=== PATIENT | female | born 1970 ===

== ENCOUNTER 2017-03-07 06:35 | Inpatient (IN) | payer OTHER ==
[2017-03-04 09:53] VITALS: BMI 35.2
--- NOTE | 2017-03-07 07:42 | CP.PCM.HP ---
History of Present Illness - History of Present Illness History of Present Illness: 46yo with Fibroid uterus and menorrhagia unresponsive to medical treatment, presenting here today for a scheduled total abdominal hysterectomy. Present on Admission - Present on Admission Any Indicators Present on Admission: No Review of Systems - Reproductive: Female Reproductive:Female: Cycle >35 Days, Menses 1-7 Days, Heavy Menses - Menstruation Menstruation: Heavy Menses Past Patient History - Past Medical History & Family History Past Medical History?: Yes - Past Social History Smoking Status: Never Smoked - PULMONARY Hx Respiratory Disorders: Yes Hx Asthma: Yes - HEMATOLOGICAL/ONCOLOGICAL Hx Blood Disorders: Yes Hx Anemia: Yes - MUSCULOSKELETAL/RHEUMATOLOGICAL Hx Musculoskeletal Disorders: Yes Hx Arthritis: Yes (LEFT ELBOW) - GASTROINTESTINAL Hx Gastrointestinal Disorders: Yes Hx Gastritis: Yes - GENITOURINARY/GYNECOLOGICAL Hx Genitourinary Disorders: Yes Hx Reproductive Disorders: Yes (HEAVY MENSES) - PSYCHIATRIC Hx Psychophysiologic Disorder: No - SURGICAL HISTORY Hx Surgeries: Yes Hx Section: Yes Other/Comment: RT OVARIAN CYSTECTOMY AGE 15 - ANESTHESIA Hx Anesthesia: Yes Hx Anesthesia Reactions: Yes (NAUSEA AND VOMITING) Hx Malignant Hyperthermia: No Has any member of the family had a problem w/ anesthesia?: No Meds Allergies/Adverse Reactions: Allergies Allergy/AdvReac Type Severity Reaction Status Date / Time No Known Allergies Allergy Verified 03/04/17 09:52 Physical Exam - Constitutional Appears: Well - Eye Exam Eye Exam: Normal appearance, PERRL - Respiratory Exam Respiratory Exam: Clear to Auscultation Bilateral, NORMAL BREATHING PATTERN - Cardiovascular Exam Cardiovascular Exam: REGULAR RHYTHM - GI/Abdominal Exam GI & Abdominal Exam: Normal Bowel Sounds - Exam External exam: NORMAL EXTERNAL EXAM Assessment & Plan (1) Menorrhagia Status: Acute (2) Fibroid (bleeding) (uterine) Status: Acute - Assessment and Plan (Free Text) Plan: NPO IV Fluids Mefoxin 1 gm before incision Director Of Software Development to OR Decision To Admit - Pt Status Changed To: Hospital Disposition Of: Inpatient - Admit Certification Admit to Inpatient:: After my assessment, the patient will require hospitalization for at least two midnights. This is because of the severity of symptoms shown, intensity of services needed, and/or the medical risk in this patient being treated as an outpatient. - InPatient: Physician Admission Certification:: Chris Win . Bed Request Type: DISTANCE EDUCATION DIRECTOR Admitting Physician: Chris Zelaya
[2017-03-07] MEDS ORDERED: Lactated Ringer's 1,000 ML IV ONE ×7 (07:49→13:23)
[2017-03-07] MEDS ORDERED: Midazolam 2 MG/2 ML VIAL ONE (07:51)
[2017-03-07] MEDS ORDERED: Propofol 10 mg/ml Inj (20 ML) ONE (07:51)
[2017-03-07] MEDS ORDERED: cefOXitin IV 2 gm in Dextrose 2 GM/50 ML BAG IVPB ONE (08:20)
[2017-03-07] MEDS ORDERED: White Petrolatum/Mineral Oil Ophth Oint(3.5 gm) ONE (08:24)
[2017-03-07] MEDS: Lidocaine 1% Inj (20ml) ONE ×2 (09:06→09:45)
[2017-03-07] MEDS ORDERED: Neostigmine Methylsulfate 3mg/3ml Syringe IV ONE (09:55)
[2017-03-07] MEDS ORDERED: Lactated Ringer's 1,000 ML IV SCH (10:30)
[2017-03-07] MEDS ORDERED: BUPIVACAINE 0.125%/0.9% NACL 600 ML IJ ONE (11:00)
[2017-03-07] MEDS: HYDROmorphone 0.5 mg/0.5 ml ISec IVP PRN ×3 (11:12→13:23)
[2017-03-07] MEDS: Oxycodone/Acetaminophen 5/325 mg Tab PO PRN ×2 (15:02→20:08)
[2017-03-07] MEDS: cefOXitin IV 2 gm in Dextrose 2 GM/50 ML BAG IVPB SCH (16:27)
--- NOTE | 2017-03-07 17:52 | PCM.SURG1 ---
Surgeon's Initial Post Op Note - Surgeon's Notes Surgeon: Dr Zelaya Business Executive: Lou Canales( FP Resident ) Type of Anesthesia: General Endo Anesthesia Administered By: ANGELA Sorto Supervised by Dr Pepe Barrios Pre-Operative Diagnosis: Fibroid Uterus with Menorrhagia Operative Findings: Large Multinodular Fibroid uterus of dimensions [id number] with absent Right fallopian tube and a fimbrial left fallopian tube. Both Ovaries appears normal. IVF Intake- 2500mls. EBL- 100mls. Urine Output - 400mls Post-Operative Diagnosis: Same as preop Diagnosis Operation Performed: Total Abdominal Hysterectomy with Left Salpingectomy Specimen/Specimens Removed: Uterus with cervix. Portion of left Fallopian tube. Estimated Blood Loss: EBL {In ML}: 100 Post-Op Condition: Good Date of Surgery/Procedure: 03/07/17 Time of Surgery/Procedure: 10:10
[2017-03-08] MEDS: cefOXitin IV 2 gm in Dextrose 2 GM/50 ML BAG IVPB SCH ×2 (00:17→08:40)
[2017-03-08 07:43] LABS: BLOOD UREA NITROGEN 6 mg/dL (7-17); CALCIUM 9.1 mg/dl (8.6-10.4); GFR AFRICAN-AMERICAN > 60; GFR NON-AFRICAN AMERICAN > 60
[2017-03-08 07:59] LABS: HEMOGLOBIN 8.6 g/dL (11.0-16.0); MEAN CELL VOLUME 71.4 fL (81.0-99.0); MEAN CORPUSCULAR HEMOGLOBIN 21.9 pg (27.0-31.0); MEAN CORPUSCULAR HGB CONC 30.6 g/dL (33.0-37.0); MEAN PLATELET VOLUME 8.2 fL (7.2-11.7); RBC 3.94 Mil/uL (3.80-5.20); RED CELL DISTRIBUTION WIDTH 18.3 % (11.5-14.5)
[2017-03-08] MEDS: Oxycodone/Acetaminophen 5/325 mg Tab PO PRN ×2 (08:38→18:13)
[2017-03-08 10:12] VITALS: PULSE 78
[2017-03-08] MEDS: Enoxaparin 40 mg Syringe SC SCH (10:48)
--- NOTE | 2017-03-08 17:40 | CP.PCM.PN ---
Subjective - Date & Time of Evaluation Date of Evaluation: 03/08/17 Time of Evaluation: 07:45 - Subjective Subjective: Patient seen and examined at bedside. Per nursing, no acute events overnight. Pain is controlled. Patient is currently OOB and in chair. Not yet ambulating. Patient is tolerating clears. Denies passing flatus or BM. Koch was removed this am, has not yet voided. Patient denies headaches, dizziness, CP, SOB, urinary symptoms. Objective - Vital Signs/Intake and Output Vital Signs (last 24 hours): Temp Pulse Resp BP Pulse Ox 97.3 F L 78 20 88/54 L 99 03/08/17 10:10 03/08/17 10:10 03/08/17 10:10 03/08/17 10:10 03/08/17 10:10 - Medications Medications: Current Medications Enoxaparin Sodium (Lovenox) 40 mg SC DAILY [facility] Last Admin: 03/08/17 10:48 Dose: 40 mg BUPIVACAINE 0.125%/0.9% NACL (Bupivacaine-Ns 0.125% On-Q Legal Mediator) 600 mls @ 4 mls/ hr IJ ONCE ONE Stop: 03/13/17 16:59 Last Admin: 03/07/17 13:45 Dose: 0 mls Lactated Ringer's (Lactated Ringer's) 1,000 mls @ 120 mls/hr IV .Q8H20M [facility] Last Admin: 03/07/17 20:13 Dose: 120 mls/hr Ondansetron HCl (Zofran Inj) 4 mg IVP Q6 PRN PRN Reason: nausea Last Admin: 03/08/17 13:42 Dose: 4 mg Oxycodone/Acetaminophen (Percocet 5/325 Mg Tab) 2 tab PO Q4 PRN PRN Reason: Pain, severe (8-10) Stop: 03/10/17 10:35 Last Admin: 03/08/17 08:38 Dose: 2 tab - Labs Labs: 03/08/17 07:21 03/08/17 07:21 - Constitutional Appears: Well, No Acute Distress - Head Exam Head Exam: ATRAUMATIC, NORMAL INSPECTION - Eye Exam Eye Exam: EOMI, Normal appearance Pupil Exam: NORMAL ACCOMODATION - ENT Exam ENT Exam: Mucous Membranes Moist - Neck Exam Neck Exam: Full ROM - Respiratory Exam Respiratory Exam: Clear to Ausculation Bilateral, NORMAL BREATHING PATTERN - Cardiovascular Exam Cardiovascular Exam: REGULAR RHYTHM, +S1, +S2 - GI/Abdominal Exam GI & Abdominal Exam: Soft, Hypoactive Bowel Sounds Additional comments: Abdomen appropriately tender, Dressing c/d/i - Back Exam Back Exam: NORMAL INSPECTION - Neurological Exam Neurological Exam: Alert, Awake, Oriented x3 - Psychiatric Exam Psychiatric exam: Normal Affect, Normal Mood - Skin Skin Exam: Normal Color, Warm Assessment and Plan (1) Fibroid (bleeding) (uterine) Status: Acute - Assessment and Plan (Free Text) Assessment: 1. Stable, afebrile 2. Continue pain control, anti-emetics prn 3. F/U am CBC 4. Encourage ambulation and hydration 5. Advance diet as tolerated 6. DC IVF 7. Continue routine post-op care 8. Lovenox 40mg SQ for DVT ppx 9. Plan discussed with attending
--- NOTE | 2017-03-08 18:47 | OP ---
PROCEDURE DATE: 03/07/2017 PREOPERATIVE DIAGNOSIS: A 46-year-old with fibroid uterus and menorrhagia, unresponsive to medical treatment. POSTOPERATIVE DIAGNOSIS: A 46-year-old with fibroid uterus and menorrhagia, unresponsive to medical treatment. PROCEDURE DONE: Total abdominal hysterectomy with left salpingectomy done on 03/07/2017 at 7:45 a.m. SURGEON: Chris Zelaya MD JAVA [id number] SOFTWARE ENGINEER: Lou Canales ([facility] Resident). Assistance in this procedure was for exposure of tissues and help in the conduct of the surgery. The assistants remained in the surgery throughout its entire length. TYPE OF ANESTHESIA: General endotracheal. ANESTHESIOLOGIST: Anesthesia was administered by ANGELA Mancia, supervised by Dr. Shultz. FINDINGS: Large multinodular fibroid uterus of dimension 12 x 9.2 x 11 cm with absent right fallopian tube and the remnant of the left fallopian tube. Both ovaries appeared normal. IV FLUID INTAKE: 2500 mL ESTIMATED BLOOD LOSS: About 100 mL URINE OUTPUT: About 400 mL DESCRIPTION OF PROCEDURE: The risk, benefits, indications, and alternatives of the procedure were reviewed with the patient and informed consent was obtained. The patient was taken to the operating room with IV running and Koch catheter in place. The patient was placed in the supine position, given general anesthesia, and prepped and draped in the usual sterile fashion. A Pfannenstiel skin incision was made about 2 cm above the pubic symphysis where the section scar was and this was extended sharply to the rectus fascia. The fascia was then incised bilaterally with a curved villar scissors and the muscles of the anterior abdominal wall were in the midline by sharp and blunt dissection. The peritoneum was centered between two Rola clamps, elevated, and entered with Metzenbaum scissors and with good visualization of the bladder. The pelvis was examined with the findings noted above and O'Deonte-O'Boateng retractor was placed into the incision and the balls were packed away with moist laparotomy sponges. A uterine cork screw device was placed under fundus of the uterus and this was used to retract the uterus into the incisional wound. The round ligaments on both sides were clamped, cauterized, and transected using the LigaSure device. The anterior leaf of the broad ligament was incised along the bladder reflection to the midline from both sides using a pickup and Metzenbaum scissors. The bladder was gently dissected off the lower uterine segment and the cervix with a Sponge-Stick. The attachment of the fallopian tubes and ovarian ligament to the corner of the uterus were grabbed, cauterized, and transected using the LigaSure device. This was done on both sides. Hemostasis was visualized. The uterine arteries were skeletonized bilaterally and clamped with a LigaSure device, cauterized and transected. Again, hemostasis was assured. Uterosacral ligament on both sides were clamped. Cauterized and transected with the LigaSure device. This was sequentially performed so the vaginal vault was entered on both sided bilaterally. The cervix was at this point amputated using the Ayden scissors through the openings which were created after cauterizing the lateral aspect of the cervix. The uterus after it had been taken over was given to the nurse for pathology evaluation. The vaginal cuff angles were closed with [id number] stitches of #0 Vicryl and were transfixed to the ipsilateral cardinal and uterosacral ligaments. The remainder of the vaginal cuff was closed with a series of interrupted #0 Vicryl [id number] sutures. Hemostasis was assured. The remnant of the left fallopian tube which was firmly attached to the left ovary was identified and picked up with a [place] forceps. The peritoneum under this segment was grabbed with the LigaSure device, cauterized, and transected and this was added to the uterus for pathological evaluation. The pelvis was irrigated copiously with warm normal saline. All laparotomy sponges and instruments were removed from the abdomen. Her fascia was closed. Attention was turned to the anterior abdominal wall which was closed in layer with 2-0 Vicryl for the peritoneum and the rectus muscle. An On-Q pain releasing system was placed into the anterior abdominal incisional wound as per the electrician research's instruction. The rectus fascia was re-approximated using Vicryl #0. The subcutaneous tissue was brought together using #2-0 plain catgut. The skin was closed in the subcuticular fashion using #4-0 Vicryl. All counts of instruments, laparotomy pads and needles used were correct x3. Patient was sent to the recovery room awake and in stable condition. Chris Zelaya MD [facility] # [id number] WILLIAN
[2017-03-09] MEDS: Oxycodone/Acetaminophen 5/325 mg Tab PO PRN ×2 (01:47→08:54)
[2017-03-09] MEDS: Enoxaparin 40 mg Syringe SC SCH (08:59)
--- NOTE | 2017-03-09 12:05 | CP.PCM.PN ---
Subjective - Date & Time of Evaluation Date of Evaluation: 03/09/17 Time of Evaluation: 11:40 - Subjective Subjective: pt was seen at bed side, pain under control with pain meds, no n/v, tolerating deit,voiding, o vb, flatus +.ONQ removed from the abdomen. and soft,mild ten incisiojn clean and dry ext mild edema,no calf ten Objective - Vital Signs/Intake and Output Vital Signs (last 24 hours): Temp Pulse Resp BP Pulse Ox 98.4 F 78 19 96/62 L 98 03/09/17 10:58 03/09/17 10:58 03/09/17 10:58 03/09/17 10:58 03/09/17 09:06 - Medications Medications: Current Medications Enoxaparin Sodium (Lovenox) 40 mg SC DAILY [facility] Last Admin: 03/09/17 08:59 Dose: 40 mg Ferrous Sulfate (Feosol) 325 mg PO DAILY [facility] Last Admin: 03/09/17 08:59 Dose: 325 mg BUPIVACAINE 0.125%/0.9% NACL (Bupivacaine-Ns 0.125% On-Q Hand Crown Pouncer) 600 mls @ 4 mls/ hr IJ ONCE ONE Stop: 03/13/17 16:59 Last Admin: 03/07/17 13:45 Dose: 0 mls Lactated Ringer's (Lactated Ringer's) 1,000 mls @ 120 mls/hr IV .Q8H20M [facility] Last Admin: 03/07/17 20:13 Dose: 120 mls/hr Ondansetron HCl (Zofran Inj) 4 mg IVP Q6 PRN PRN Reason: nausea Last Admin: 03/08/17 13:42 Dose: 4 mg Oxycodone/Acetaminophen (Percocet 5/325 Mg Tab) 2 tab PO Q4 PRN PRN Reason: Pain, severe (8-10) Stop: 03/10/17 10:35 Last Admin: 03/09/17 08:54 Dose: 2 tab - Labs Labs: 03/08/17 07:21 03/08/17 07:21 Assessment and Plan - Assessment and Plan (Free Text) Assessment: 46 yr with total abdominal hystrectomy Plan: plan dc home no sex percocet, prn f/u Dr Zelaya in 1-2 weeks if any fever call pmd
[2017-03-09 12:11] VITALS: BP 96/62; TEMP 98.4; O2SAT 98
[2017-03-09 12:46] VITALS: RESP 19
== END 2017-03-09 12:57 | disposition home or self-care (01) | DRG 743 ==
LOC: C.9S 06:35 → C.4M 13:28
PROVIDERS: ADMIT Obstetrics & Gynecology; ATTEND Obstetrics & Gynecology
PROC: 0UTC0ZZ Resection of Cervix, Open Approach (ICD-10-PCS; 2017-03-07)
PROC: 0UT60ZZ Resection of Left Fallopian Tube, Open Approach (ICD-10-PCS; 2017-03-07)
PROC: 0UT90ZZ Resection of Uterus, Open Approach (ICD-10-PCS; principal; 2017-03-07 07:45)
DX: D25.2 Subserosal leiomyoma of uterus (principal); D25.0 Submucous leiomyoma of uterus; D25.1 Intramural leiomyoma of uterus; N92.0 Excessive and frequent menstruation with regular cycle; N83.8 Other noninflammatory disorders of ovary, fallopian tube and broad ligament; N80.0 Endometriosis of uterus; N88.8 Other specified noninflammatory disorders of cervix uteri; Z90.79 Acquired absence of other genital organ(s)